=== PATIENT | female | born 1990 | race Caucasian/White ===

== ENCOUNTER → 2016-12-23 | Outpatient (CLI) | payer SELFPAY ==
[2016-12-16 11:09] VITALS: BP 100/60
[2016-12-23 14:33] LABS: BASO # 0.1 x10^3/uL (0.0-0.2); BASO % 1 % (0-3); EOS % 2 % (0-3); HEMATOCRIT 44.3 % (36.0-47.0); HEMOGLOBIN 14.8 g/dL (12.0-15.5); LYMPH # 2.8 x10^3/uL (1.0-4.8); LYMPH % 21 % (24-48); MEAN CORPUSCULAR HEMOGLOBIN 33 pg (25-35); MEAN CORPUSCULAR HGB CONC 33 g/dL (31-37); MEAN CORPUSCULAR VOLUME 98 fL (79-100); MONO % 5 % (0-9); NEUT % 71 % (31-73); PLATELET COUNT 346 x10^3/uL (140-400); RED BLOOD COUNT 4.52 x10^6/uL (3.50-5.40); RED CELL DISTRIBUTION WIDTH 13.1 % (11.5-14.5); WHITE BLOOD COUNT 13.5 x10^3/uL (4.0-11.0)
[2016-12-23 15:12] LABS: CALCIUM 8.9 mg/dL (8.5-10.1); CREATININE 0.9 mg/dL (0.6-1.0); GFR 75.1; TOTAL BILIRUBIN 0.5 mg/dL (0.2-1.0)
== END | disposition home or self-care (01) ==
LOC: LAB 14:06
PROVIDERS: ATTEND Surgery
DX: Z51.81 Encounter for therapeutic drug level monitoring (principal); Z98.890 Other specified postprocedural states
CPT/HCPCS: 36415; 80048; 82247; 85025

== ENCOUNTER → 2016-12-24 | Outpatient (CLI) | payer SELFPAY ==
[2016-12-16 11:09] VITALS: BP 100/60
[~2016-12-24] MED LIST: CONTRAST GIVEN MC PRN; IOHEXOL 300 MG/ML 75 ML VIAL IV ONE
--- NOTE | 2016-12-24 09:29 | RAD ---
CT abdomen/pelvis with contrast 12/24/2016 Indication: Status post cholecystectomy and biopsy with abdominal pain. Comparison: CT abdomen/pelvis 12/11/2016 Technique: Multiple axial CT images of the abdomen and pelvis were obtained after the intravenous administration of 75 mL Omnipaque 300. Coronal and sagittal reformats are provided. Findings: There is subsegmental atelectasis at the right lung base. Heart size is within normal limits. Liver is homogeneous without evidence for a focal mass lesion. Spleen is within normal limits. Bilateral adrenal glands and pancreas are normal in appearance. Surgical clips are identified in the right upper quadrant compatible with cholecystectomy changes. There is trace free fluid within the gallbladder fossa. The abdominal aorta is normal in course and caliber. There are no pathologically enlarged lymph nodes in the abdomen or pelvis. Small volume free intraperitoneal air is compatible with recent postoperative status. Small supraumbilical hernia is identified containing fat. The kidneys enhance symmetrically. No suspicious renal mass is identified. There is no hydronephrosis. No calculi are identified within the ureters or urinary bladder. Urinary bladder is within normal limits given degree of distention. Small and large bowel are normal in caliber. No evidence for bowel obstruction. Normal appendix is visualized. No pericolic inflammatory changes are present. No suspicious adnexal masses are identified. Uterus and ovaries are visualized. No suspicious osseous lesions are identified. Impression: 1. There is trace fluid within the gallbladder fossa, likely associated with minimal residual postoperative inflammatory changes. No drainable fluid collection is identified. 2. Small volume free intraperitoneal air may reflect recent insufflation from laparoscopic procedure. However, recommend correlation with date of procedure as findings could represent perforated viscous if surgery date is more remote. No bowel inflammatory changes are identified. Critical findings were discussed with Dr. Vasquez's nurse, Nicole , at 9:15 a.m. on 12/24/2016. PQRS Compliance Statement: One or more of the following individualized dose reduction techniques were utilized for this examination: 1. Automated exposure control 2. Adjustment of the mA and/or kV according to patient size 3. Use of iterative reconstruction technique
== END | disposition home or self-care (01) ==
LOC: CT 07:46
PROVIDERS: ATTEND Surgery
DX: K80.10 Calculus of gallbladder with chronic cholecystitis without obstruction (principal); K42.9 Umbilical hernia without obstruction or gangrene; J98.11 Atelectasis; Z90.49 Acquired absence of other specified parts of digestive tract
CPT/HCPCS: 74177; Q9967